=== PATIENT | female | born 1960 | race Caucasian/White ===

== ENCOUNTER 2017-01-27 16:20 | Day surgery (SDC) | payer BC ==
[~2017-01-27 16:20] MED LIST: Lactated Ringers 1,000 ML IV SCH
[2017-01-27] MEDS ORDERED: Lidocaine 2% 100 MG/5 ML Syringe IVPUSH ONE (17:00)
[2017-01-27] MEDS ORDERED: Midazolam 1 MG/ML 2 ML SDV IV ONE (17:00)
[2017-01-27] MEDS ORDERED: Propofol 200 MG/20 ML SDV IV ONE (17:00)
--- NOTE | 2017-01-27 17:21 | PCM.HP ---
H&P History of Present Illness - General Date of Service: 01/27/17 (Seen at 1630) Admit Problem/Dx: Admission Diagnosis/Problem Admission Diagnosis/Problem Esophagogastroduodenoscopy Source of Information: Patient History Limitations: Reports: No Limitations - History of Present Illness Initial Comments - Free Text/Narative: Unable to swallow anything after supper last pm, has piecr of chicken stuck. Has happened intermittently past 2 years but has always resolved in 15 minutes or so. Symptom Onset Date: 01/26/17 (after supper) - Related Data Allergies/Adverse Reactions: Allergies Allergy/AdvReac Type Severity Reaction Status Date / Time Sulfa (Sulfonamide Allergy Rash Verified 01/27/17 16:45 Antibiotics) Home Medications: Home Meds Aspirin [Low Dose Aspirin EC] 81 mg PO DAILY 01/27/17 [History] Multivitamin [Multiple Vitamins] 1 ea PO DAILY 01/27/17 [History] Past Medical History HEENT History: Reports: Impaired Vision Gastrointestinal History: Reports: Other (See Below) Other Gastrointestinal History: CHOKING SENSATION ONCE EVERY 2-3 MONTHS Social & Family History - Tobacco Use Smoking Status *Q: Never Smoker - Caffeine Use Caffeine Use: Reports: None - Recreational Drug Use Recreational Drug Use: No H&P Review of Systems - Review of Systems: Review Of Systems: See Below General: Reports: No Symptoms HEENT: Reports: No Symptoms Cardiovascular: Reports: No Symptoms Gastrointestinal: Reports: No Symptoms Exam - Exam Exam: See Below - Vital Signs Vital Signs: Last Vital Signs Temp 98.1 F 01/27/17 16:47 Pulse 69 01/27/17 16:47 Resp 16 01/27/17 16:47 BP 130/69 01/27/17 16:47 Pulse Ox 98 01/27/17 16:47 Weight: 60.328 kg - Exam General: Alert, Oriented Lungs: Clear to Auscultation, Normal Respiratory Effort Cardiovascular: Regular Rate, Regular Rhythm GI/Abdominal Exam: Soft, Non-Tender *Q Meaningful Use (ADM) - VTE *Q VTE Criteria *Q: - Stroke *Q Stroke Criteria *Q: - AMI *Q AMI Criteria *Q: Problem List Initiated/Reviewed/Updated: Yes Orders Last 24hrs: Active Orders 24 hr Category Date Time Status Patient Status [ADT] Routine ADT 01/27/17 16:13 Ordered Patient to Empty Bladder [RC] ASDIRECTED Care 01/27/17 16:13 Active Verify Patient Consent Obtain [RC] ASDIRECTED Care 01/27/17 16:13 Active Nothing Per Oral Diet [DIET] Diet 01/27/17 Breakfast Ordered Lactated Ringers [Ringers, Lactated] 1,000 ml Med 01/27/17 16:15 Active IV ASDIRECTED Peripheral IV Insertion Adult [OM.PC] Routine Oth 01/27/17 16:13 Ordered Resuscitation Status Routine Resus Stat 01/27/17 16:13 Ordered Medication Orders Lactated Ringer's (Ringers, Lactated) 1,000 mls @ 125 mls/hr IV ASDIRECTED [facility] Last Admin: 01/27/17 16:57 Dose: 125 mls/hr Assessment/Plan Comment:: Foreign Body in Esophagus Will proceed with EGD, possible dilation and/or Bx
--- NOTE | 2017-01-27 17:24 | PCM.OPNOTE ---
- General Post-Op/Procedure Note Date of Surgery/Procedure: 01/27/17 Operative Procedure(s): EGD with Bx Findings: Distal Esophagitis Pre Op Diagnosis: FB Esophagus Post-Op Diagnosis: Same Anesthesia Technique: MAC Primary Surgeon: Capo Dias Anesthesia Provider: Merlyn Chinchilla Pathology: esophagus EBL in mLs: 0 Complications: None Condition: Good
[2017-01-27 18:21] VITALS: BP 105/67
--- NOTE | 2017-01-28 11:36 | OR ---
DATE OF OPERATION: 01/27/2017 SURGEON: Capo Dias MD PREOPERATIVE DIAGNOSIS: Foreign body in esophagus. POSTOPERATIVE DIAGNOSIS: Foreign body in esophagus. PROCEDURE PERFORMED: EGD with biopsy. ANESTHESIA: IV sedation. HISTORY: This patient presented with a piece of chicken stuck in her esophagus since last night and has been unable to swallow any liquids for almost 24 hours. She presents to the emergency room. Shortly before arrival, she feels that the piece of meat may have dislodged since she is able to now swallow. She has been having intermittent problems for the last two years, but previous episodes have resolved within 15 minutes. I recommended that we proceed with upper endoscopy since this needs further evaluation. Possible dilatation would be performed if necessary. DESCRIPTION OF PROCEDURE: The patient was brought to the procedure room where IV sedation was administered. Oral bite block was placed and the upper endoscope advanced into the esophagus under direct vision without difficulty. Vocal cords were viewed and were normal. Scope was advanced through the esophagus to the third portion of the duodenum. Duodenum and pylorus are normal. Antrum and body of the stomach are normal. Retroflexion reveals a normal appearing fundus. I did not see any stricture; however, there is inflammation in the distal esophagus. This could be from reflux or recent foreign body that was present. I did take two biopsies. Dilatation was not necessary as the scope easily passed through. Air was removed from the stomach and the scope was withdrawn. The patient tolerated the procedure well. RECOMMENDATIONS: I will start the patient on omeprazole 20 mg daily and follow up with her in [place] next week to go over the biopsy results. /[id number] YUAN/MONICA CC: CALDERON May, Keyshawn Wesley
== END 2017-01-27 18:30 | disposition home or self-care (01) ==
LOC: FB.SDS 16:20 → FB.MS 17:20 → FB.SDS 18:30
PROVIDERS: ATTEND Surgery
DX: K22.10 Ulcer of esophagus without bleeding (principal); T18.128A Food in esophagus causing other injury, initial encounter; Z88.2 Allergy status to sulfonamides; Z79.82 Long term (current) use of aspirin; Z79.899 Other long term (current) drug therapy
CPT/HCPCS: 43239; 88305; J2250; J2704; J7120